=== PATIENT | male | born 1995 | race Caucasian/White ===

== ENCOUNTER → 2017-02-03 | Outpatient (CLI) | payer BC ==
--- NOTE | 2017-02-03 08:51 | US ---
EXAMINATION TYPE: US abdomen complete DATE OF EXAM: 02/03/2017 COMPARISON: NONE CLINICAL HISTORY: Unspecified Abd Pain R10.9. 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 Liver is somewhat increased in echo pattern which is a nonspecific finding can be seen with fatty infiltration. Hepatocellular disease or hepatitis not excluded correlate with hepatic function studie s. 2. Borderline mild splenomegaly.
== END | disposition home or self-care (01) ==
LOC: RADUSWWP 07:02
PROVIDERS: ATTEND Family Medicine
DX: R10.9 Unspecified abdominal pain (principal)
CPT/HCPCS: 76700

== ENCOUNTER → 2017-02-11 | Outpatient (CLI) | payer BC ==
--- NOTE | 2017-02-12 07:50 | NM ---
EXAMINATION TYPE: NM hepatobiliary w EF DATE OF EXAM: 02/11/2017 COMPARISON: NONE HISTORY: Right upper quadrant pain. TECHNIQUE: After the intravenous administration of 5.5 mCi Tc 99m Mebrofenin hepatobiliary scintigrap hy is performed. Immediate images post injection. FINDINGS: There is satisfactory initial accumulation of tracer by the liver. The gallbladder is visualized wit hin 0 minutes. The small bowel activity is noted within 6 minutes. At one hour 8 ounces of oral ens ure plus is given to mimic CCK and gallbladder ejection fraction is calculated at 69 %, in the normal range. Therefore there is no scintigraphic evidence of cystic or common bile duct obstruction to alejandra ggest acute cholecystitis or gallbladder dyskinesia. IMPRESSION: NORMAL NUCLEAR MEDICINE HEPATOBILIARY SCAN WITH EJECTION FRACTION CALCULATION.
== END | disposition home or self-care (01) ==
LOC: RADNMMAIN 14:29
PROVIDERS: ATTEND Family Medicine
DX: R10.9 Unspecified abdominal pain (principal)
CPT/HCPCS: 78226; A9537